=== PATIENT | female | born 1970 | race African-American/Black ===

== ENCOUNTER 2016-09-26 12:13 | Outpatient (CLI) | payer BC, OTHER ==
[~2016-09-26 12:13] MED LIST: AMLO5TAB2 PO; LEVO100T9 PO; LOSA50TA21 PO
[2016-09-26 12:58] LABS: ALBUMIN 3.8 g/dL (3.4-5.0); BILIRUBIN,TOTAL 0.9 mg/dL (0.2-1.0); CALCIUM, SERUM 8.9 mg/dL (8.5-10.1); CREATININE 0.7 mg/dL (0.6-1.3); POTASSIUM 4.2 mmol/L (3.5-5.1); TOTAL PROTEIN, SERUM 7.4 g/dL (6.4-8.2)
[2016-09-26 13:06] LABS: THYROID STIMULATING HORMONE 2.085 uIU/mL (0.358-3.74)
== END 2016-09-26 23:59 | disposition home or self-care (01) ==
LOC: LAB 12:13
DX: E11.9 Type 2 diabetes mellitus without complications (principal); E78.5 Hyperlipidemia, unspecified; E03.9 Hypothyroidism, unspecified
CPT/HCPCS: 36415; 80053-TC; 80061-TC; 84439-TC; 84443-TC; 84481

== ENCOUNTER 2016-11-29 07:18 | Outpatient (CLI) | payer BC, OTHER ==
[2016-11-29 08:16] LABS: BILIRUBIN,TOTAL 0.9 mg/dL (0.2-1.0); CREATININE 1.1 mg/dL (0.6-1.3); POTASSIUM 4.5 mmol/L (3.5-5.1); TOTAL PROTEIN, SERUM 7.6 g/dL (6.4-8.2)
== END 2016-11-29 23:59 | disposition home or self-care (01) ==
LOC: LAB 07:18
DX: E11.9 Type 2 diabetes mellitus without complications (principal)
CPT/HCPCS: 36415; 80053-TC

== ENCOUNTER 2017-05-03 07:56 | Outpatient (CLI) | payer BC, OTHER ==
[2017-05-03 09:13] LABS: THYROID STIMULATING HORMONE 1.513 uIU/mL (0.358-3.74)
[2017-05-03 09:24] LABS: POTASSIUM 4.2 mmol/L (3.5-5.1)
[2017-05-03 09:25] LABS: BILIRUBIN,TOTAL 0.9 mg/dL (0.2-1.0); CALCIUM, SERUM 8.4 mg/dL (8.5-10.1); CREATININE 0.8 mg/dL (0.6-1.3)
[2017-05-03 09:26] LABS: ALBUMIN 3.6 g/dL (3.4-5.0); TOTAL PROTEIN, SERUM 7.2 g/dL (6.4-8.2)
== END 2017-05-03 23:59 | disposition home or self-care (01) ==
LOC: LAB 07:56
DX: E11.9 Type 2 diabetes mellitus without complications (principal); E78.5 Hyperlipidemia, unspecified; E05.90 Thyrotoxicosis, unspecified without thyrotoxic crisis or storm
CPT/HCPCS: 36415; 80053-TC; 80061-TC; 84439-TC; 84443-TC; 84481

== ENCOUNTER 2017-07-29 11:18 | Outpatient (CLI) | payer BC ==
[2017-07-29 12:46] LABS: ALBUMIN 3.8 g/dL (3.4-5.0); BILIRUBIN,TOTAL 1.2 mg/dL (0.2-1.0); CALCIUM, SERUM 9.2 mg/dL (8.5-10.1); CREATININE 0.9 mg/dL (0.6-1.3); POTASSIUM 3.9 mmol/L (3.5-5.1); TOTAL PROTEIN, SERUM 7.7 g/dL (6.4-8.2)
== END 2017-07-29 23:59 | disposition home or self-care (01) ==
LOC: LAB 11:18
DX: E11.9 Type 2 diabetes mellitus without complications (principal); I10 Essential (primary) hypertension
CPT/HCPCS: 36415; 80053-TC

== ENCOUNTER 2017-11-07 09:07 | Outpatient (CLI) | payer BC ==
[2017-11-07 10:13] LABS: ALBUMIN 3.3 g/dL (3.4-5.0); BILIRUBIN,TOTAL 0.7 mg/dL (0.2-1.0); CALCIUM, SERUM 8.6 mg/dL (8.5-10.1); CREATININE 0.9 mg/dL (0.6-1.3); POTASSIUM 4.2 mmol/L (3.5-5.1)
== END 2017-11-07 23:59 | disposition home or self-care (01) ==
LOC: LAB 09:07
DX: E11.9 Type 2 diabetes mellitus without complications (principal); E78.5 Hyperlipidemia, unspecified
CPT/HCPCS: 36415; 80053-TC; 80061-TC

== ENCOUNTER 2017-12-18 07:58 | Outpatient (CLI) | payer BC ==
[~2017-12-18 07:58] MED LIST changes: -AMLO5TAB2 PO; +AMLO5TAB7 PO
[2017-12-18 08:51] LABS: ALBUMIN 3.7 g/dL (3.4-5.0); CALCIUM, SERUM 8.7 mg/dL (8.5-10.1); CREATININE 0.8 mg/dL (0.6-1.3); POTASSIUM 4.2 mmol/L (3.5-5.1); TOTAL PROTEIN, SERUM 7.3 g/dL (6.4-8.2)
[2017-12-18 08:57] LABS: THYROID STIMULATING HORMONE 20.99 uIU/mL (0.358-3.74)
== END 2017-12-18 23:59 | disposition home or self-care (01) ==
LOC: LAB 07:58
DX: I10 Essential (primary) hypertension (principal); E11.9 Type 2 diabetes mellitus without complications; E03.9 Hypothyroidism, unspecified
CPT/HCPCS: 36415; 80053-TC; 80061-TC; 84439-TC; 84443-TC; 84481

== ENCOUNTER 2018-01-16 07:08 | Outpatient (CLI) | payer BC ==
[2018-01-16 09:52] LABS: THYROID STIMULATING HORMONE 4.133 uIU/mL (0.358-3.74)
[2018-01-16 09:58] LABS: ALBUMIN 3.6 g/dL (3.4-5.0); BILIRUBIN,TOTAL 0.6 mg/dL (0.2-1.0); CREATININE 0.7 mg/dL (0.6-1.3); TOTAL PROTEIN, SERUM 7.2 g/dL (6.4-8.2)
== END 2018-01-16 23:59 | disposition home or self-care (01) ==
LOC: LAB 07:08
DX: E11.9 Type 2 diabetes mellitus without complications (principal); E03.9 Hypothyroidism, unspecified
CPT/HCPCS: 36415; 80053-TC; 84439-TC; 84443-TC

== ENCOUNTER 2018-04-14 12:18 | Outpatient (CLI) | payer BC ==
[~2018-04-14 12:18] MED LIST changes: +AMLO5TAB2 PO; -AMLO5TAB7 PO
[2018-04-14 14:50] LABS: ALBUMIN 3.7 g/dL (3.4-5.0); BILIRUBIN,TOTAL 1.2 mg/dL (0.2-1.0); CALCIUM, SERUM 9.1 mg/dL (8.5-10.1); CREATININE 0.6 mg/dL (0.6-1.3); POTASSIUM 3.7 mmol/L (3.5-5.1); TOTAL PROTEIN, SERUM 7.2 g/dL (6.4-8.2)
[2018-04-14 18:24] LABS: FREE T4 (FREE THYROXINE) 1.44 ng/dL (0.76-1.46); THYROID STIMULATING HORMONE 0.756 uIU/mL (0.358-3.74)
== END 2018-04-14 23:59 | disposition home or self-care (01) ==
LOC: LAB 12:18
DX: E11.9 Type 2 diabetes mellitus without complications (principal); E78.5 Hyperlipidemia, unspecified
CPT/HCPCS: 36415; 80053-TC; 84439-TC; 84443-TC; 84481

== ENCOUNTER 2018-06-13 10:17 | Outpatient (CLI) | payer BC, OTHER ==
[~2018-06-13 10:17] MED LIST changes: -AMLO5TAB2 PO; +AMLO5TAB7 PO
[2018-06-13 12:03] LABS: ALBUMIN 3.7 g/dL (3.4-5.0); BILIRUBIN,TOTAL 0.8 mg/dL (0.2-1.0); CALCIUM, SERUM 9.5 mg/dL (8.5-10.1); CREATININE 0.8 mg/dL (0.6-1.3); POTASSIUM 4.1 mmol/L (3.5-5.1); TOTAL PROTEIN, SERUM 7.4 g/dL (6.4-8.2)
== END 2018-06-13 23:59 | disposition home or self-care (01) ==
LOC: LAB 10:17
DX: E11.9 Type 2 diabetes mellitus without complications (principal); E03.9 Hypothyroidism, unspecified; I10 Essential (primary) hypertension; E78.5 Hyperlipidemia, unspecified
CPT/HCPCS: 36415; 80053-TC; 80061-TC

== ENCOUNTER 2018-11-21 07:09 | Outpatient (CLI) | payer BC ==
[~2018-11-21 07:09] MED LIST changes: -AMLO5TAB7 PO; +AMLO5TAB9 PO; -LOSA50TA21 PO; +LOSA50TA39 PO
[2018-11-21 09:32] LABS: BASOPHILS % (AUTO) 0.6 % (0.0-2.0); EOSINOPHILS % (AUTO) 1.9 % (0.0-6.0); HEMATOCRIT 45 % (33-45); LYMPHOCYTES # (AUTO) 2.7 /CMM (0.8-4.8); LYMPHOCYTES % (AUTO) 34.8 % (20.0-44.0); MEAN CORPUSCULAR HGB CONC 34 g/dl (31.0-36.0); MEAN CORPUSCULAR VOLUME 85 fL (82-100); MONOCYTES # (AUTO) 0.4 /CMM (0.1-1.30); MONOCYTES % (AUTO) 5.8 % (2.0-12.0); NEUTROPHILS # (AUTO) 4.4 /CMM (1.8-8.9); NEUTROPHILS % (AUTO) 56.9 % (43.0-81.0); PLATELET COUNT (AUTO) 220 /CMM (150-450); WHITE BLOOD COUNT (AUTO) 7.7 K/uL (4.3-11.0)
[2018-11-21 09:45] LABS: ALBUMIN 3.8 g/dL (3.4-5.0); BILIRUBIN,TOTAL 0.8 mg/dL (0.2-1.0); CALCIUM, SERUM 8.9 mg/dL (8.5-10.1); CREATININE 0.8 mg/dL (0.6-1.3); POTASSIUM 4.3 mmol/L (3.5-5.1); TOTAL PROTEIN, SERUM 7.3 g/dL (6.4-8.2)
[2018-11-21 09:53] LABS: THYROID STIMULATING HORMONE 0.184 uIU/mL (0.358-3.74)
[2018-11-21 11:50] LABS: APPEARANCE,URINE CLEAR (CLEAR); BILIRUBIN,URINE NEGATIVE (NEGATIVE); BLOOD, URINE NEGATIVE Ery/uL (NEGATIVE); COLOR,URINE YELLOW (YELLOW); KETONES,URINE NEGATIVE (NEGATIVE); LEUKOCYTE ESTERASE ,URINE NEGATIVE (NEGATIVE); NITRITE, URINE NEGATIVE (NEGATIVE); PH,URINE 5.5 (5.0-8.0); PROTEIN,URINE NEGATIVE (NEGATIVE); UGLUCOSE 3+ mg/dL (NEGATIVE); UROBILINOGEN,URINE 0.2 EU/dL (0.2)
[2018-11-21 11:54] LABS: BACTERIA,URINE None seen /HPF (None Seen); CLINITEST,URINE 1%; RBC,URINE NONE SEEN /HPF (0-2); SQUAMOUS EPITHELIAL CELL,UR None Seen /HPF (None Seen); WBC,URINE NONE SEEN /HPF (0-3)
[2018-11-21 13:24] LABS: OCCULT BLOOD STOOL NEGATIVE (NEGATIVE)
[2018-11-22 08:08] LABS: T3, FREE 3.4 pg/mL (2.0-4.4)
== END 2018-11-21 23:59 | disposition home or self-care (01) ==
LOC: LAB 07:09
DX: E11.9 Type 2 diabetes mellitus without complications (principal); I10 Essential (primary) hypertension; E03.9 Hypothyroidism, unspecified; R53.83 Other fatigue; R53.81 Other malaise; E78.00 Pure hypercholesterolemia, unspecified
CPT/HCPCS: 36415; 80053-TC; 80061-TC; 81000-TC; 82272-TC; 82306; 84439-TC; 84443-TC; 84481; 85025-TC

== ENCOUNTER 2019-03-04 11:17 | Inpatient (IN) | payer BC ==
[~2019-03-04] VITALS: Ht 157.5 cm; Wt 84.8 kg
--- NOTE | 2019-03-04 11:40 | NUR ---
CAME IN FOR L SIDE GROIN AREA PAIN X 2 WEEKS. TO ER BED 9, HOOKED TO MONITOR, CHANGED TO GOWN, PROVIDED W WARM BLANKET, AWAITING MD RODRIGUEZ
--- NOTE | 2019-03-04 12:26 | NUR ---
ALIE BROWN AT BEDSIDE
[2019-03-04] MEDS ORDERED: IV NS 0.9% 1,000 ML BAG IV ONE (12:30)
[2019-03-04 12:42] LABS: BASOPHILS # (AUTO) 0.1 /CMM (0.0-0.2); BASOPHILS % (AUTO) 0.5 % (0.0-2.0); EOSINOPHILS % (AUTO) 1.3 % (0.0-6.0); HEMATOCRIT 43 % (33-45); HEMOGLOBIN 14.6 g/dL (11.5-14.8); LYMPHOCYTES # (AUTO) 2.5 /CMM (0.8-4.8); LYMPHOCYTES % (AUTO) 24.8 % (20.0-44.0); MEAN CORPUSCULAR HGB CONC 34 g/dl (31.0-36.0); MEAN CORPUSCULAR VOLUME 84 fL (82-100); MONOCYTES # (AUTO) 0.7 /CMM (0.1-1.30); NEUTROPHILS # (AUTO) 6.7 /CMM (1.8-8.9); NEUTROPHILS % (AUTO) 66.4 % (43.0-81.0); PLATELET COUNT (AUTO) 216 /CMM (150-450); RED BLOOD CELL COUNT(AUTO) 5.08 MIL/uL (4.0-5.2); WHITE BLOOD COUNT (AUTO) 10.1 K/uL (4.3-11.0)
--- NOTE | 2019-03-04 12:45 | NUR ---
US TECH AT BEDSIDE
[2019-03-04 12:53] LABS: ALBUMIN 3.2 g/dL (3.4-5.0); BILIRUBIN,DIRECT 0.1 mg/dL (0.0-0.2); BILIRUBIN,TOTAL 0.9 mg/dL (0.2-1.0); CALCIUM, SERUM 8.8 mg/dL (8.5-10.1); CREATININE 0.7 mg/dL (0.6-1.3); POTASSIUM 4.1 mmol/L (3.5-5.1); TOTAL PROTEIN, SERUM 7.1 g/dL (6.4-8.2)
[2019-03-04] MEDS ORDERED: CEFTRIAXONE 1GM BAG (ER ONLY) 50 ML IV ONE (13:59)
[2019-03-04] MEDS ORDERED: CEFTRIAXONE 1GM BAG (ER ONLY) 1 GM/50 ML PIGGYBACK IV ONE (14:00)
[2019-03-04] MEDS ORDERED: ACETAMINOPHEN ES 500 MG TABLET ONE (14:34)
[2019-03-04] MEDS ORDERED: ACETAMINOPHEN 325 MG TABLET PO ONE (15:00)
[2019-03-04] MEDS ORDERED: IOHEXOL-300 100 ML VIAL IV ONE (16:46)
[2019-03-04] MEDS ORDERED: IV NS 0.9% 250 ML IV ONE (16:47)
[2019-03-04] MEDS ORDERED: CT SWABBABLE VALVE TRANS SET 1 EA INFUS.SET MC ONE (16:47)
--- NOTE | 2019-03-04 16:54 | NUR ---
RAC 20G INFILTRATED, IV removed. Catheter intact and site benign. Pressure and 4x4 applied to site. No bleeding noted. STARTED IVP AT LAC 18G
--- NOTE | 2019-03-04 16:59 | NUR ---
WHEELED OUT VIA GURNEY FOR CT PELVIS W CONTRAST
--- NOTE | 2019-03-04 17:19 | NUR ---
PT INSTRUCTED BY SUNDEEP FIERRO OF NOT TAKING METFORMIN FOR 48HRS. PT VERBALIZED UNDERSTANDING. PT SIGNED INSTRUCTIONS FOR DIABETIC PATIENTS TAKING METFORMIN (GLUCOPHAGE) WHO HAVE RECEIVED IV CONTRAST.
[2019-03-04] MEDS ORDERED: VANCOMYCIN 1 GM in IV D5W 250 ML IV ONE (19:00)
--- NOTE | 2019-03-04 19:10 | NUR ---
REPORT GIVEN TO RAMON STODDARD FOR TERRY
--- NOTE | 2019-03-04 19:12 | NUR ---
PT RECEIVED FROM RICHI DOMINGUEZ FOR TERRY.
[2019-03-04] MEDS ORDERED: VANCOMYCIN 1 GM VIAL ONE (19:15)
--- NOTE | 2019-03-04 19:34 | NUR ---
BED 913-2
[2019-03-04] MEDS ORDERED: ATOR40TA PO (19:55)
[2019-03-04] MEDS ORDERED: AMLO10TA7 PO (19:55)
[2019-03-04] MEDS ORDERED: LEVO112T7 PO (19:55)
[2019-03-04] MEDS ORDERED: GLIM2TAB2 PO (19:55)
[2019-03-04] MEDS ORDERED: Triamterene PO (19:55)
[2019-03-04] MEDS ORDERED: METF-440 PO (19:55)
--- NOTE | 2019-03-04 19:57 | NUR ---
REPORT GIVEN TO RICHI WILSON FOR TERRY. PT GOING TO 326-2 MS
--- NOTE | 2019-03-04 20:25 | NUR ---
MS RN NOTE PT ARRIVED TO UNIT VIA GURNEY FROM ER. ACCOMPANIED BY 3 CHILDREN. PT IN STABLE CONDITION A&O X4, ABLE TO MAKE NEEDS KNOWN. CURRENTLY IN BED SPEAKING WITH CHILDREN. NO SIGNS OF SOB OR DISTRESS, NO C/O PAIN. BODY ASSESSED WITH PHOTOS TAKEN. PT REFUSED TO FOR PRIVATE AREA TO BE SEEN. STATED THERE IS NOTHING THERE. ALL BELONGINGS ACCOUNTED AND SIGNED FOR. IV IN L AC IN PLACE. ALL NEEDS ATTENDED TO. BED LOW, LOCKED, UPPER RAILS UP, AND CALL LIGHT WITHIN REACH. JAMES PAGED AND NOTIFIED OF PT ARRIVAL. AWAITING ORDERS ON PCS. WILL CONT. TO MONITOR.
--- NOTE | 2019-03-04 20:31 | NUR ---
PT TRANSPORTED BY EMT AT BEDSIDE. PT INSTABLE CONDITION UPON TRANSFER. NAD.
[2019-03-04] MEDS ORDERED: CEFTRIAXONE 1 G in IV D5W 50 ML IV SCH (22:30)
[2019-03-04] MEDS ORDERED: ONDANSETRON HCL/PF 4 MG/2 ML VIAL IVP PRN (22:30)
[2019-03-04] MEDS ORDERED: LOSARTAN POTASSIUM 50 MG TABLET PO PRN (22:30)
[2019-03-04] MEDS ORDERED: Z GUARD REMEDY 2 OZ OINT TP PRN (22:30)
[2019-03-04] MEDS ORDERED: MAG HYDROX/AL HYDROX/SIMETH 30 ML UDC PO PRN (22:30)
[2019-03-04] MEDS ORDERED: DEXTROSE 50%-WATER 50 ML DISP.SYRIN IV PRN (22:30)
[2019-03-04] MEDS: MORPHINE SULFATE INJ 2 MG/ML DISP.SYRIN IV PRN (22:36)
--- NOTE | 2019-03-04 22:36 | NUR ---
MS RN NOTE PRN MORPHINE 4 MG GIVEN IV FOR L THIGH PAIN 04/11. WILL CONT. TO MONITOR.
[2019-03-05] MEDS: HYDROCODONE/APAP 5/325MG 1 EACH TABLET PO PRN ×2 (03:46→17:40)
--- NOTE | 2019-03-05 03:46 | NUR ---
MS RN NOTE PRN NORCO 5-325 MG GIVEN PO FOR L THIGH PAIN 03/11. WILL CONT. TO MONITOR
[2019-03-05] MEDS: INSULIN REGULAR, HUMAN 100 UNIT/ML 3 ML VIAL SQ PRN ×4 (06:17→21:44)
--- NOTE | 2019-03-05 06:27 | NUR ---
MS RN NOTE PT IN STABLE CONDITION A&O X4, ABLE TO MAKE NEEDS KNOWN. CURRENTLY IN BED, WITH EYES CLOSED. NO SIGNS OF SOB OR DISTRESS, NO C/O PAIN. IV IN L AC IN PLACE H/L. ALL NEEDS ATTENDED TO. BED LOW, LOCKED, UPPER RAILS UP, AND CALL LIGHT WITHIN REACH. WILL CONT. TO MONITOR AND ENDORSE TO NEXT SHIFT FOR TERRY.
[2019-03-05 06:36] LABS: BASOPHILS % (AUTO) 0.3 % (0.0-2.0); EOSINOPHILS % (AUTO) 0.9 % (0.0-6.0); HEMATOCRIT 39 % (33-45); HEMOGLOBIN 13.4 g/dL (11.5-14.8); LYMPHOCYTES # (AUTO) 2.5 /CMM (0.8-4.8); LYMPHOCYTES % (AUTO) 23.9 % (20.0-44.0); MEAN CORPUSCULAR HGB CONC 34 g/dl (31.0-36.0); MEAN CORPUSCULAR VOLUME 83 fL (82-100); MONOCYTES # (AUTO) 0.7 /CMM (0.1-1.30); MONOCYTES % (AUTO) 6.4 % (2.0-12.0); NEUTROPHILS # (AUTO) 7.1 /CMM (1.8-8.9); NEUTROPHILS % (AUTO) 68.5 % (43.0-81.0); PLATELET COUNT (AUTO) 211 /CMM (150-450); RED BLOOD CELL COUNT(AUTO) 4.72 MIL/uL (4.0-5.2); WHITE BLOOD COUNT (AUTO) 10.3 K/uL (4.3-11.0)
[2019-03-05 06:45] LABS: THYROID STIMULATING HORMONE 0.978 uIU/mL (0.358-3.74)
[2019-03-05 06:52] LABS: CALCIUM, SERUM 8.3 mg/dL (8.5-10.1); CREATININE 0.7 mg/dL (0.6-1.3); MAGNESIUM 1.8 mg/dL (1.8-2.4); PHOSPHORUS 3.8 mg/dL (2.5-4.9); POTASSIUM 3.8 mmol/L (3.5-5.1)
--- NOTE | 2019-03-05 07:10 | NUR ---
RN OPENING NOTES RECEIVED PATIENT IN BED RESTING. A/OX4. NOT IN ANY FORM OF DISTRESS, NO SOB. PAIN ON LEFT GROIN 12/10, REFUSED PAIN MEDS, "PAIN TOLERABLE AT THIS TIME" . IV ACCESS INTACT AND PATENT. KEPT PATIENT SAFE AND COMFORTABLE. BED IN LOW/LOCKED POSITION, SIDERAILS UPX2, CALL LIGHT IN REACH. WILL CONTINUE TO MONIOTR ACCORDINGLY Addendum: 03/05/19 at 0805 by CHARLA RIVERA ACCU CHECK NON ADMIN. ACCU CHECK DONE PRIOR TO SHIFT BY RICHI WILSON
[2019-03-05] MEDS: BLOOD SUGAR DIAGNOSTIC 1 EACH STRIP IN SCH ×4 (07:30→21:38)
[2019-03-05] MEDS: LEVOTHYROXINE SODIUM 112 MCG TABLET PO SCH (07:49)
[2019-03-05 08:00] VITALS: BP 104/59
[2019-03-05] MEDS: AMLODIPINE BESYLATE 10 MG TABLET PO SCH (08:03)
[2019-03-05] MEDS ORDERED: FEE PK DOSING 1 MIN EA MC ONE (08:28)
[2019-03-05] MEDS: VANCOMYCIN 1 GM in IV D5W 250 ML IV SCH ×2 (08:59→20:25)
[2019-03-05] MEDS ORDERED: TRIAMTERENE 25 MG PO SCH (09:00)
[2019-03-05] MEDS: ACETAMINOPHEN 325 MG TABLET PO PRN (10:50)
[2019-03-05] MEDS: CEFTRIAXONE 1 G in IV D5W 50 ML IV SCH (14:54)
[2019-03-05 15:30] VITALS: BP 121/78
[2019-03-05] MEDS: ATORVASTATIN 40 MG TABLET PO SCH (17:39)
--- NOTE | 2019-03-05 19:14 | NUR ---
RN CLOSING NOTES PATIENT IN STABLE CONDITION. ALL NEEDS ATTENDED AND PROVIDED. ALL DUE MEDICATIONS GIVEN ORDERED. ASSISTED WITH ADLS. KEPT PATIENT SAFE AND COMFORTABLE. BED INLOW/LOCKED POSIITON. SIDERAILS UP X2, CALL LIGHT IN REACH. ENDORSED TO NIGHT RN FOR TERRY.
--- NOTE | 2019-03-05 19:15 | NUR ---
MS RN OPENING NOTES Received patient in bed, family at bedside. Alert, oriented x 4. Breathing even and unlabored. Not in any distress, on room air. No complaints at this time. Call light within easy reach, bed in low, locked position. Will continue to monitor accordingly
[2019-03-05 20:00] VITALS: BP 112/76
--- NOTE | 2019-03-05 21:47 | NUR ---
RN NOTES BSL- 337mg/dL. Insulin 8units given per sliding scale. Snacks provided
[2019-03-05] MEDS ORDERED: INSULIN GLARGINE, 100 UNIT/ML CARTRIDGE SQ SCH (22:00)
--- NOTE | 2019-03-06 06:22 | NUR ---
RN NOTES Clarified with patient regarding code status. Patient stated she wishes to be DNR. business services sales agent consult requested
[2019-03-06] MEDS: BLOOD SUGAR DIAGNOSTIC 1 EACH STRIP IN SCH ×4 (06:36→21:32)
[2019-03-06] MEDS: INSULIN REGULAR, HUMAN 100 UNIT/ML 3 ML VIAL SQ PRN ×4 (06:37→21:35)
--- NOTE | 2019-03-06 06:41 | NUR ---
MS RN CLOSING NOTES Patient sitting up in bed, alert, oriented x 4. Breathing even and unlabored. Not in any distress, on room air. No complaints at this time. BSL 218MG/DL. Insulin 4u given per sliding scale. All needs attended. Call light within easy reach, bed in low, locked position. Will continue to monitor accordingly
[2019-03-06] MEDS: MAGNESIUM HYDROXIDE 30 ML UDC PO PRN (06:47)
--- NOTE | 2019-03-06 06:48 | NUR ---
RN NOTES Patient requested medication for constipation. Milk of magnesia given as ordered
[2019-03-06] MEDS: LEVOTHYROXINE SODIUM 112 MCG TABLET PO SCH (07:35)
--- NOTE | 2019-03-06 07:37 | NUR ---
MS RN OPENING NOTES RECEIVED PT LAYING IN BED WITH HOB ELEVATED. PT IS AWAKE, ALERTX4. RESPIRATIONS ARE EVEN AND UNLABORED, NOT IN ANY ACUTE DISTRESS NOTED. PT C/O PAIN 2/10 TO LEFT UPPER THIGH BUT STATES SHE DOES NOT NEED ANYTHING FOR PAIN, WILL MONITOR FOR PAIN. DENIES ANY SOB, N/V. IV SITE TO RIGHT HAND G22, INTACT, NO INFILTRATION NOTED. DRESSING KEPT CLEAN AND DRY. SAFETY MEASURES ARE IN PLACE. INSTRUCTED PT TO USE CALL LIGHT WHEN ASSISTANCE IS NEEDED, CALL LIGHT IS LEFT WITHIN REACH WILL MONITOR THROUGHOUT SHIFT FOR CONTINUITY OF CARE.
[2019-03-06 08:00] VITALS: BP 139/80
[2019-03-06] MEDS: AMLODIPINE BESYLATE 10 MG TABLET PO SCH (08:11)
--- NOTE | 2019-03-06 08:12 | NUR ---
MS RN NOTES-- BP 139/80. PT STATED SHE DOES NOT TAKEN ANY BP MEDICATIONS IF SBP <140. EXPLAINED THE RISKS AND BENEFITS OF AMLODIPINE. PT STATED SHE UNDERSTANDS. WILL MONITOR FOR HYPO/HYPERTENSION.
[2019-03-06 08:29] LABS: CALCIUM, SERUM 8.4 mg/dL (8.5-10.1); CREATININE 0.7 mg/dL (0.6-1.3); POTASSIUM 3.7 mmol/L (3.5-5.1)
[2019-03-06] MEDS ORDERED: VANCOMYCIN 1 GM in IV NS 0.9% 250 ML IV SCH (09:00)
--- NOTE | 2019-03-06 11:57 | NUR ---
MS RN NOTES-- BLOOD SUGAR 261. 6 UNITS OF HUMULIN GIVEN. NO S/SX OF HYPO/HYPERGLYCEMIA. WILL CONTINUE TO MONITOR.
--- NOTE | 2019-03-06 11:59 | NUR ---
MS RN NOTES-- PT WAS SEEN AND EXAMINED BY DR. FENTON.
[2019-03-06] MEDS: CEFTRIAXONE 1 G in IV D5W 50 ML IV SCH (13:32)
--- NOTE | 2019-03-06 15:30 | NUR ---
MS RN NOTES-- WARM COMPRESS GIVEN TO APPLY TO LEFT GROIN.
[2019-03-06 16:00] VITALS: BP 124/70
[2019-03-06] MEDS: LACTOBACILLUS RHAMNOSUS GG 1 EACH CAP.SPRINK PO SCH (16:46)
[2019-03-06] MEDS: ACETAMINOPHEN 325 MG TABLET PO PRN (16:46)
[2019-03-06] MEDS: ATORVASTATIN 40 MG TABLET PO SCH (17:17)
--- NOTE | 2019-03-06 17:17 | NUR ---
MS RN NOTES-- BLOOD SUGAR 138. 2 UNITS OF INSULIN GIVEN. NO S/SX OF HYPO/HYPOGLYCEMIA. PT REFUSED LIPITOR. PER PT, "MY CHOLESTEROL IS GOOD, I DONT NEED IT." EXPLAINED THE RISKS AND BENEFITS OF LIPITOR. PT STATED, "NO ITS OKAY, I DONT NEED IT." WILL CONTINUE TO MONITOR.
--- NOTE | 2019-03-06 18:35 | NUR ---
MS RN CLOSING NOTES NEEDS MET AND RENDERED. PT REMAINS A/O X4, AFEBRILE. RESPIRATIONS ARE EVEN AND UNLABORED, NOT IN ANY ACUTE DISTRESS NOTED. PT DENIES ANY PAIN AT THIS TIME, NO C/O SOB, N/V. IV SITE TO RIGHT HAND INTACT, NO INFILTRATION NOTED. DRESSING KEPT CLEAN AND DRY. SAFETY MEASURES ARE IN PLACE. WILL ENDORSE TO NEXT SHIFT FOR CONTINUITY OF CARE.
[2019-03-06 20:00] VITALS: BP 138/77
--- NOTE | 2019-03-06 20:11 | NUR ---
MS/RN ON INITIAL SHIFT ROUND AT 1930, PATIENT WAS IN BED AOX4, COMFORTABLE, NO C/O PAIN. NO DISTRESS NOTED, CALL LIGHT IN REACH. WILL MONITOR.
[2019-03-06] MEDS: VANCOMYCIN 1.25 GM in IV NS 0.9% 500 ML IV SCH (21:20)
[2019-03-06] MEDS: INSULIN GLARGINE, 100 UNIT/ML CARTRIDGE SQ SCH (21:34)
[2019-03-06] MEDS: HYDROCODONE/APAP 5/325MG 1 EACH TABLET PO PRN (21:47)
--- NOTE | 2019-03-06 23:41 | NUR ---
MS/RN PATIENT IS SLEEPING APPEAR COMFORTABLE, NO SIGNS OF DISTRESS NOTED, CALL LIGHT IN REACH. WILL CONTINUE TO MONITOR.
--- NOTE | 2019-03-07 06:12 | NUR ---
MS/RN PATIENT IS AWAKE, SLEPT GOOD THE WHOLE SHIFT, NO DISTRESS NOTED, CALL LIGHT IN REACH. ALL NEEDS ATTENDED AT THIS TIME, WILL CONTINUE TO MONITOR.
[2019-03-07] MEDS: INSULIN REGULAR, HUMAN 100 UNIT/ML 3 ML VIAL SQ PRN ×4 (06:29→21:57)
[2019-03-07] MEDS: BLOOD SUGAR DIAGNOSTIC 1 EACH STRIP IN SCH ×4 (06:31→22:02)
[2019-03-07 06:57] LABS: BASOPHILS # (AUTO) 0.1 /CMM (0.0-0.2); BASOPHILS % (AUTO) 1.2 % (0.0-2.0); EOSINOPHILS % (AUTO) 2.5 % (0.0-6.0); HEMATOCRIT 39 % (33-45); HEMOGLOBIN 13.3 g/dL (11.5-14.8); LYMPHOCYTES % (AUTO) 33.3 % (20.0-44.0); MEAN CORPUSCULAR HGB CONC 34 g/dl (31.0-36.0); MEAN CORPUSCULAR VOLUME 84 fL (82-100); MONOCYTES # (AUTO) 0.7 /CMM (0.1-1.30); MONOCYTES % (AUTO) 7.1 % (2.0-12.0); NEUTROPHILS # (AUTO) 5.1 /CMM (1.8-8.9); NEUTROPHILS % (AUTO) 55.9 % (43.0-81.0); PLATELET COUNT (AUTO) 184 /CMM (150-450); RED BLOOD CELL COUNT(AUTO) 4.63 MIL/uL (4.0-5.2); WHITE BLOOD COUNT (AUTO) 9.1 K/uL (4.3-11.0)
[2019-03-07 07:26] LABS: CALCIUM, SERUM 8.6 mg/dL (8.5-10.1); CREATININE 0.6 mg/dL (0.6-1.3); POTASSIUM 4.1 mmol/L (3.5-5.1)
--- NOTE | 2019-03-07 07:30 | NUR ---
RN MS NOTES PT IN BED, AWAKE, ALERT AND ORIENTED, WITH COMPLAINT OF PAIN 3/10 TO LEFT GROIN, DOES NOT WANT ANY PAIN MED AT THIS TIME, RESPIRATIONS NORMAL, CALL LIGHT WITHIN REACH, NEEDS ATTENDED.
[2019-03-07 08:00] VITALS: BP 151/91
[2019-03-07] MEDS: LEVOTHYROXINE SODIUM 112 MCG TABLET PO SCH (08:24)
[2019-03-07] MEDS: LACTOBACILLUS RHAMNOSUS GG 1 EACH CAP.SPRINK PO SCH ×2 (08:24→17:10)
[2019-03-07] MEDS: VANCOMYCIN 1.25 GM in IV NS 0.9% 500 ML IV SCH ×2 (08:27→20:41)
--- NOTE | 2019-03-07 08:30 | NUR ---
RN MS NOTES PT IN BED, SEEN AND EXAMINED BY DR. STEELE, PLAN OF CARE DISCUSSED WITH PT, VERBALIZED UNDERSTANDING, AM MEDS GIVEN ORDERED.
[2019-03-07] MEDS: AMLODIPINE BESYLATE 10 MG TABLET PO SCH (08:39)
[2019-03-07] MEDS ORDERED: LACTOBACILLUS RHAMNOSUS GG 1 EACH CAP.SPRINK PO SCH (09:00)
--- NOTE | 2019-03-07 12:34 | NUR ---
RN MS NOTES PT AWAKE, WALKING ALONG THE HALLWAY TOLERATED, NO COMPLAINT OF PAIN, RESPIRATIONS NORMAL, TOLERATING CURRENT DIET WELL, NEEDS ATTENDED.
[2019-03-07] MEDS: CEFTRIAXONE 1 G in IV D5W 50 ML IV SCH (13:57)
[2019-03-07 16:00] VITALS: BP 112/84
[2019-03-07] MEDS: ATORVASTATIN 40 MG TABLET PO SCH (17:10)
--- NOTE | 2019-03-07 18:23 | NUR ---
RN MS NOTES PT IN BED, ASLEEP, EASY TO AROUSE, NO COMPLAINT OF PAIN AT THIS TIME, RESPIRATIONS NORMAL, CALL LIGHT WITHIN REACH, DUE MEDS GIVEN ORDERED, BS CHECKED, ALL NEEDS ATTENDED.
--- NOTE | 2019-03-07 19:10 | NUR ---
RN MS OPENING NOTES RECEIVED PATIENT IN BED AWAKE ALERT AND ORIENTED X4, RESPIRATIONS EVEN AND UNLABORED WITH EQUAL RISE AND FALL OF CHEST, LEFT GROIN AREA SKIN IS INTACT , SLIGHTLY RED AND TENDER TO TOUCH HOWEVER AT THIS TIME DOES NOT NEED PAIN MEDICATION , TOLERABLE , MADE AWARE PAIN MEDICATION IS AVAILABLE IF NEEDED, S/B ID WITH RECOMMENDATION TO CONT ABX AND AWAIT SX CONSULT,IV SITE TO LEFT FA #20 G INTACT AND PATENT, NO REDNESS, NO INFILTRATION PRESENT,ORIENTED TO STAFF AND CALL LIGHT AND KETP WITHIN REACH,ALL NEEDS ATTENDED REMAINS COMFORTABLE AT THIS TIME WILL CONTINUE TO MONITOR AND ATTEND TO NEEDS.
[2019-03-07 20:00] VITALS: BP 132/81
[2019-03-07] MEDS: INSULIN GLARGINE, 100 UNIT/ML CARTRIDGE SQ SCH (21:59)
[2019-03-08] MEDS ORDERED: LIDOCAINE 1%-EPI 1:100,000 20 ML VIAL TP ONE
--- NOTE | 2019-03-08 | NUR ---
RN MS CONSENT NOTES SURGICAL CONSULT DONE SEEN BY DR.SAMUEL FRANKS AT BEDSIDE, PER MD RECOMMENDS NEEDLE ASPIRATION , POSSIBLE INCISION AND DRAINAGE OF LEFT THIGH. PATIENT MADE AWARE OF MD RECOMMENDATION TRANSLATED IN [place] AND MADE AWARE OF CONSENTS NEEDED, MD WILL USE LIDOCAINE AND DO PROCEDURE AT BEDSIDE, PATIENT AGREED, CONSENTS OBTAINED ORDERED, ANESTHESIA CONSENT OBTAINED. PROCEDURE EXPLAINED TO PATIENT BY MD.
--- NOTE | 2019-03-08 00:05 | NUR ---
RN MS NOTES LIDOCAINE SCANNED FOR MD USE ORDERED.
[2019-03-08] MEDS: HYDROCODONE/APAP 5/325MG 1 EACH TABLET PO PRN ×3 (00:07→21:42)
--- NOTE | 2019-03-08 00:07 | NUR ---
RN MS NOTES PATIENT OFFERED PAIN MEDICATION PRIOR TO START OF PROCEDURE, OFFERED MORPHINE OR NORCO PER PATIENT REQUEST TO TAKE NORCO AT THIS TIME, PRN NORCO GIVEN PRIOR TO START OF PROCEDURE.
[2019-03-08] MEDS: MORPHINE SULFATE INJ 2 MG/ML DISP.SYRIN IV PRN ×2 (00:28→15:15)
--- NOTE | 2019-03-08 00:28 | NUR ---
RN MS NOTES PATIENT NOTED WITH FACIAL GRIMACING DISCOMFORT/PAIN TO LEFT THIGH DURING BEGINNING OF PROCEDURE , PER MD GIVE IV PAIN MEDICATION,PRN MORPHINE OFFERED, PATIENT AGREED TO HAVE AT THIS TIME , MD MADE AWARE OF NORCO RECENTLY GIVEN, PER MD. GOLDEN GLASS TO GIVE PRN MORPHINE AT THIS TIME,MORPHINE PRN GIVEN ORDERED, WILL CONTINUE TO MONITOR FOR EFFECTIVENESS.
--- NOTE | 2019-03-08 01:30 | NUR ---
RN MS NOTES PAIN REASSESSED , STATES "NO PAIN " PAIN MEDICATION WAS EFFECTIVE.REMAINS COMFORTABLE AT THIS TIME.
[2019-03-08] MEDS: BLOOD SUGAR DIAGNOSTIC 1 EACH STRIP IN SCH ×4 (06:28→21:46)
[2019-03-08] MEDS: INSULIN REGULAR, HUMAN 100 UNIT/ML 3 ML VIAL SQ PRN ×3 (06:29→21:50)
--- NOTE | 2019-03-08 06:38 | NUR ---
RN MS CLOSING NOTES PATIENT IN BED AWAKE ALERT AND ORIENTED X4, RESPIRATIONS EVEN AND UNLABORED WITH EQUAL RISE AND FALL OF CHEST, LEFT GROIN S/P I &D SITE WITH DRESSING INTACT NOTED WITH SLIGHT SEROSANGUINEOUS DRAINAGE,DRESSING REMAINS INTACT, C/O PAIN DISCOMFORT, HOWEVER AT THIS TIME DOES NOT NEED PAIN MEDICATION , TOLERABLE , MADE AWARE PAIN MEDICATION IS AVAILABLE IF NEEDED,IV SITE TO LEFT FA #20 G INTACT AND PATENT, NO REDNESS, NO INFILTRATION PRESENT, CALL LIGHT KEPT WITHIN REACH,ALL NEEDS ATTENDED REMAINS COMFORTABLE AT THIS TIME WILL CONTINUE TO MONITOR AND ATTEND TO NEEDS AND ENDORSE TO NEXT SHIFT.
--- NOTE | 2019-03-08 07:30 | NUR ---
MS/RN NOTE RECEIVED THE PATIENT IN BED. ALERT AND ORIENTED X4. DENIES PAIN. RESPIRATION REGULAR AND UNLABORED. DENIES SOB. THE PATIENT IS IN ROOM AIR. LFA G 20 PATENT AND SALINE LOCKED. LEFT GROIN DRESSING IN PLACE WITH LIGHT RED DRAINAGE NOTED. BED LOW ADN LOCKED. SIDE RAILS UP X2. CALL LIGHT WITHIN REACH. WILL CONTINUE TO MONITOR.
[2019-03-08 08:00] VITALS: BP 123/88
[2019-03-08] MEDS: LEVOTHYROXINE SODIUM 112 MCG TABLET PO SCH (08:23)
[2019-03-08 08:37] VITALS: BP 123/88
[2019-03-08] MEDS: AMLODIPINE BESYLATE 10 MG TABLET PO SCH (09:00)
[2019-03-08] MEDS: VANCOMYCIN 1.25 GM in IV NS 0.9% 500 ML IV SCH (09:28)
[2019-03-08] MEDS: LACTOBACILLUS RHAMNOSUS GG 1 EACH CAP.SPRINK PO SCH ×2 (09:28→17:39)
[2019-03-08 09:32] LABS: CALCIUM, SERUM 8.3 mg/dL (8.5-10.1); CREATININE 0.7 mg/dL (0.6-1.3); POTASSIUM 3.7 mmol/L (3.5-5.1)
[2019-03-08] MEDS: CEFTRIAXONE 1 G in IV D5W 50 ML IV SCH (14:17)
[2019-03-08 16:00] VITALS: BP 111/78
[2019-03-08] MEDS: METFORMIN 500 MG TABLET PO SCH (17:38)
[2019-03-08] MEDS: ATORVASTATIN 40 MG TABLET PO SCH (17:39)
[2019-03-08] MEDS: VANCOMYCIN 1.25 GM in IV D5W 500 ML IV SCH (17:41)
--- NOTE | 2019-03-08 18:48 | NUR ---
MS/RN NOTE THE PATIENT ALERT AND ORIENTED X4. IN ROOM AIR AND SATURATION IS AT 98%. DENIES SOB. RESPIRATION REGULAR AND UNLABORED. DENIES PAIN. THE PATIENT IN NO APPARENT DISTRESS. LEFT GROIN DRESSING CHANGE DONE DURING THE SHIFT. THE DRESSING INTACT WITH NO BLEEDING NOTED. LFA G 20 PATENT AND SALINE LOCKED. BED LOW AND LOCKED. SIDE RAILS UP X2. CALL LIGHT WITHIN REACH. WILL ENDORSE TO INDUSTRIAL ORGANIZATION MANAGER.
--- NOTE | 2019-03-08 19:00 | NUR ---
RN MS OPENING NOTES RECEIVED PATIENT IN BED AWAKE ALERT AND ORIENTED X4, RESPIRATIONS EVEN AND UNLABORED WITH EQUAL RISE AND FALL OF CHEST, LEFT GROIN AREA DRESSING IS INTACT , AT THIS TIME DOES NOT PAIN MEDICATION , IV SITE TO LEFT FA #20 G REMOVED NOTED INFILTRATED ICE APPLIED, IV SITE TO RIGHT FA #20 G INTACT AND PATENT, NO REDNESS, NO INFILTRATION PRESENT,ORIENTED TO STAFF AND CALL LIGHT AND KEPT WITHIN REACH,ALL NEEDS ATTENDED REMAINS COMFORTABLE AT THIS TIME WILL CONTINUE TO MONITOR AND ATTEND TO NEEDS.
[2019-03-08 20:00] VITALS: BP 105/74
--- NOTE | 2019-03-08 21:42 | NUR ---
RN MS NOTES PATIENT STATES PAIN TO LEFT S/P I &D AREA /THIGH ,04/11 ALSO NOTED DRESSING WITH MODERATE SEROSANGUINEOUS DRAINAGE, OFFERED TO CHANGE DRESSING PER PATIENT REQUEST ONLY DRY GAUZE TO BE CHANGED NOT PACKING, "PACKING WAS CHANGED IN AM" ALSO FOR SATURDAY PICTURE , "PICTURE WAS TAKEN AT TIME OF DRESSING CHANGE TODAY" SATURDAY PICTURE IN CHART NORCO PRN GIVEN ORDERED VS WNL. WILL CONTINUE TO MONITOR FOR EFFECTIVENESS.
[2019-03-08] MEDS: INSULIN GLARGINE, 100 UNIT/ML CARTRIDGE SQ SCH (21:47)
[2019-03-08] MEDS: MAGNESIUM HYDROXIDE 30 ML UDC PO PRN (21:52)
--- NOTE | 2019-03-08 21:52 | NUR ---
RN MS NOTES PATIENT STATES HAS NOT HAD A BOWEL MOVEMENT AND REQUESTING FOR MILK OF MAGNESIUM , PRN MILK OF MAGNESIUM GIVEN ORDERED. WILL CONTINUE TO MONITOR FOR EFFECTIVENESS.
--- NOTE | 2019-03-08 22:30 | NUR ---
RN MS NOTES DRY GAUZE DRESSING CHANGED AT THIS TIME, TOLERATED WELL. PAIN MEDICATION EFFECTIVE.
[2019-03-09] MEDS: VANCOMYCIN 1.25 GM in IV D5W 500 ML IV SCH ×3 (01:46→20:31)
[2019-03-09] MEDS: INSULIN REGULAR, HUMAN 100 UNIT/ML 3 ML VIAL SQ PRN ×4 (06:11→22:07)
[2019-03-09] MEDS: BLOOD SUGAR DIAGNOSTIC 1 EACH STRIP IN SCH ×4 (06:11→22:00)
--- NOTE | 2019-03-09 07:15 | NUR ---
MS/RN OPENING NOTE THE PATIENT IS RECEIVED IN BED. AWAKE, ALERT AND ORIENTED X4. IN ROOM AIR AND DENIES SOB. RESPIRATION REGULAR AND UNLABORED. DENIES PAIN. THE PATIENT IS IN NO APPARENT DISTRESS. LEFT GROIN DRESSING INTACT. NO BLEEDING OR DISCHARGE NOTED. RFA G 20 PATENT AND SALINE LOCKED. BED LOW AND LOCKED. SIDE RAILS UP X2. CALL LIGHT WITHIN REACH. WILL CONTINUE TO MONITOR.
--- NOTE | 2019-03-09 07:31 | NUR ---
RN MS CLOSING NOTES PATIENT IN BED AWAKE ALERT AND ORIENTED X4, RESPIRATIONS EVEN AND UNLABORED WITH EQUAL RISE AND FALL OF CHEST, LEFT GROIN AREA DRESSING IS INTACT , AT THIS TIME DOES NOT PAIN MEDICATION , IV SITE TO RIGHT FA #20 G INTACT AND PATENT, NO REDNESS, NO INFILTRATION PRESENT, CALL LIGHT KEPT WITHIN REACH,ALL NEEDS ATTENDED REMAINS COMFORTABLE AT THIS TIME WILL CONTINUE TO MONITOR AND ATTEND TO NEEDS AND ENDORSE TO NEXT SHIFT.
[2019-03-09] MEDS: LEVOTHYROXINE SODIUM 112 MCG TABLET PO SCH (07:46)
[2019-03-09 08:00] VITALS: BP 139/82
[2019-03-09 08:14] LABS: CALCIUM, SERUM 8.4 mg/dL (8.5-10.1); CREATININE 0.7 mg/dL (0.6-1.3)
[2019-03-09] MEDS: METFORMIN 500 MG TABLET PO SCH ×2 (08:19→18:22)
[2019-03-09] MEDS: AMLODIPINE BESYLATE 10 MG TABLET PO SCH (09:00)
[2019-03-09] MEDS: LACTOBACILLUS RHAMNOSUS GG 1 EACH CAP.SPRINK PO SCH ×2 (10:05→18:22)
[2019-03-09] MEDS: HYDROCODONE/APAP 5/325MG 1 EACH TABLET PO PRN (15:30)
[2019-03-09 16:00] VITALS: BP 129/96
[2019-03-09] MEDS: ATORVASTATIN 40 MG TABLET PO SCH (18:22)
--- NOTE | 2019-03-09 18:39 | NUR ---
MS/RN NOTE THE PATIENT ALERT AND ORIENTED X4. IN ROOM AIR AND SATURATION IS AT 98%. DENIES SOB. RESPIRATION REGULAR AND UNLABORED. DENIES PAIN. THE PATIENT IN NO APPARENT DISTRESS. LEFT GROIN DRESSING CHANGE DONE AND THE PATIENT TOLERATED IT WELL. NO S/S INFECTION AT THE SITE NOTED, NO BLEEDING NOTED. RAC G 22 PATENT AND SALINE LOCKED. BED LOW AND LOCKED. SIDE RAILS UP X2. CALL LIGHT WITHIN REACH. WILL ENDORSE TO MATCHER LEATHER PARTS.
--- NOTE | 2019-03-09 19:15 | NUR ---
RN medsurg opening notes Received Pt from morning nurse. Pt is alert and oriented x4. Pt's family at the bed side. Pt is laying in bed comfortably. Respiration is normal. No SOB. No nausea or vomiting. Pt denies any pain or discomfort at this time. IV sites at RAC #22 is intact, patent and SL. Safety precautions is maintained. Instructed to call. Bed at low position, brakes on, side rails upX2 and call light is within reach. Will continue to monitor to assist all needs.
[2019-03-09 20:00] VITALS: BP 132/81
--- NOTE | 2019-03-09 22:00 | NUR ---
RN medsurg notes Pt is resting in bed comfortably. Awaken easily. No S/S of distress noted. Will continue to monitor.
[2019-03-09] MEDS: INSULIN GLARGINE, 100 UNIT/ML CARTRIDGE SQ SCH (22:05)
[2019-03-10] MEDS: BLOOD SUGAR DIAGNOSTIC 1 EACH STRIP IN SCH ×4 (06:31→20:54)
--- NOTE | 2019-03-10 06:44 | NUR ---
RN medsurg notes Pt is alert and oriented X4. Pt is laying in bed comfortably. No SOB. NO S/S of distress noted. Pt denies any pain or discomfort at this time. No nausea or vomiting. VS is stable. Afebrile. IV sites at BANNER is intact, patent, clean and SL. Routine meds were given. All needs met. Dressing at L groin is clean, dry and intact. Safety precautions is maintained. Bed at low position and call light is within reach. Will endorse to morning nurse for TERRY.
[2019-03-10] MEDS: LEVOTHYROXINE SODIUM 112 MCG TABLET PO SCH (07:51)
[2019-03-10 08:00] VITALS: BP 138/98
[2019-03-10 08:01] LABS: CALCIUM, SERUM 8.7 mg/dL (8.5-10.1); CREATININE 0.8 mg/dL (0.6-1.3); POTASSIUM 3.9 mmol/L (3.5-5.1)
[2019-03-10] MEDS: METFORMIN 500 MG TABLET PO SCH ×2 (09:31→17:00)
[2019-03-10] MEDS: LACTOBACILLUS RHAMNOSUS GG 1 EACH CAP.SPRINK PO SCH ×2 (09:31→18:02)
[2019-03-10] MEDS: VANCOMYCIN 1.25 GM in IV D5W 500 ML IV SCH (09:31)
[2019-03-10] MEDS: AMLODIPINE BESYLATE 10 MG TABLET PO SCH (09:32)
[2019-03-10] MEDS: ACETAMINOPHEN 325 MG TABLET PO PRN (11:28)
--- NOTE | 2019-03-10 11:33 | NUR ---
medicated for headache with tylenol 650 mg po.additionally iv leaking,removed and restarted with #22 angio.
[2019-03-10] MEDS: INSULIN REGULAR, HUMAN 100 UNIT/ML 3 ML VIAL SQ PRN (12:50)
[2019-03-10] MEDS: HYDROCODONE/APAP 5/325MG 1 EACH TABLET PO PRN (12:51)
--- NOTE | 2019-03-10 13:00 | NUR ---
medicated with norco in preparation of dressing chg.
--- NOTE | 2019-03-10 13:20 | NUR ---
tolerated dressing change ,but with good deal of pain,does not want pain injection.had small amt. serous drainage from wd.still with swelling in thigh.
[2019-03-10 16:00] VITALS: BP 107/66
[2019-03-10] MEDS: ATORVASTATIN 40 MG TABLET PO SCH (18:03)
--- NOTE | 2019-03-10 18:30 | NUR ---
dc instructions given to pt. aware of wound care follow up at clinic and home health info. has rxs per cece garcía rehabilitation medicine physician.verbalized understanding of all instructions.will endorse eve. cortés to do diabetic instruction on insulin injection.all papers signed including belonging sheet.
--- NOTE | 2019-03-10 18:40 | NUR ---
refused discharge photo of lt. groin wound as does not want tape on dressing to be removed.
--- NOTE | 2019-03-10 19:30 | NUR ---
RN medsurg opening notes Received Pt from morning nurse. Pt is alert and oriented x4. Respiration is normal. No SOB. No S/S of distress noted. Pt states " I'm happy to go home." IV sites is intact, patent and clean. D/C instruction has been given by RICHI Gross. Informed and educated Pt how to use Insulin Lantus, prevent from hypoglycemia, skin care, eat healthy food, F/U with MD. Pt and Pt's daughter verbalized understanding and returned demo.
[2019-03-10 20:27] VITALS: BP 142/93
[2019-03-10] MEDS: INSULIN GLARGINE, 100 UNIT/ML CARTRIDGE SQ SCH (20:57)
--- NOTE | 2019-03-10 20:57 | NUR ---
RN medsur notes Pt's blood sugar was 177. Pt's preferred to have Lantus 22 units. Educated and showed Pt how to injected the insulin and changed the sites all the time. Instructed Pt to check blood glucose regularly or as instructed by the MD. Educated Pt to have snacks, [place] juice all the time to prevent from hypoglycemia. Informed Pt to clean with alcohol swab the sites and Lantus insulin. Pt and Pt's daughter verbalized understanding and returned demo. PT showed how to pulled insulin from Lantus and get the corrected amount, Pt also showed how injected Lantus insulin in right sites, and don't rub the sites.
--- NOTE | 2019-03-10 21:26 | NUR ---
RN peter D/C notes Pt is alert and oriented X4. Respiration is normal. No Sob. No nausea or vomiting. Pt denies any pain or discomfort. VS is stable. Afebrile. Discharge instruction given. Instructed Pt when to call primary MD for appoitment and infectious disease. Educated and informed about Lantus insulin. Pt and Pt's daughter verbalize understanding about Insulin regimen and medications, wound care, and D/C instructions. Pt's daughter Piedad at the bed side and will take her home. Pt has been ambulating in the room without SOB, no nausea or vomiting, no pain. Pt escorted to hospital's lobby and all belongings sent with Pt.
== END 2019-03-10 21:30 | disposition home or self-care (01) | DRG 815 ==
LOC: ER 11:17 → MED 19:53
PROVIDERS: ADMIT Nurse Practitioner Acute Care; ATTEND Nurse Practitioner Acute Care
PROC: 0J9M3ZZ Drainage of Left Upper Leg Subcutaneous Tissue and Fascia, Percutaneous Approach (ICD-10-PCS; principal; 2019-03-08)
DX: L04.1 Acute lymphadenitis of trunk (principal); L02.214 Cutaneous abscess of groin; L03.314 Cellulitis of groin; E11.65 Type 2 diabetes mellitus with hyperglycemia; K57.30 Diverticulosis of large intestine without perforation or abscess without bleeding; E03.9 Hypothyroidism, unspecified; Z90.710 Acquired absence of both cervix and uterus; Z83.3 Family history of diabetes mellitus; Z80.0 Family history of malignant neoplasm of digestive organs; Z79.890 Hormone replacement therapy; Z79.84 Long term (current) use of oral hypoglycemic drugs; E66.9 Obesity, unspecified; K46.9 Unspecified abdominal hernia without obstruction or gangrene; E78.5 Hyperlipidemia, unspecified; I10 Essential (primary) hypertension; Z68.34 Body mass index [BMI] 34.0-34.9, adult; L04.9 Acute lymphadenitis, unspecified; B95.61 Methicillin susceptible Staphylococcus aureus infection as the cause of diseases classified elsewhere
CPT/HCPCS: 36415; 72193-TC; 76882; 80048-TC; 80061-TC; 80076-TC; 80202-TC; 82962-TC; 83735-TC; 84100-TC; 84443-TC; 84703-TC; 85025-TC; 87040-TC; 87070-TC; 87081-TC; 93971-TC; A6407; G0378; J0696; J1815; J2270; J3370; J3490; J7030; J7040; J7050; J7060; Q9967

== ENCOUNTER 2019-03-16 14:40 | Outpatient (CLI) | payer BC ==
[~2019-03-16 14:40] MED LIST changes: +AMLO10TA7 PO; -AMLO5TAB9 PO; +ATOR40TA PO; +GLIM2TAB2 PO; -LEVO100T9 PO; +LEVO112T7 PO; +METF-440 PO; +Triamterene PO
== END 2019-03-16 23:59 | disposition home health service (06) ==
LOC: WOU 14:40
PROVIDERS: ATTEND Surgery
DX: T81.89XA Other complications of procedures, not elsewhere classified, initial encounter (principal); E66.01 Morbid (severe) obesity due to excess calories; Z68.36 Body mass index [BMI] 36.0-36.9, adult; E11.9 Type 2 diabetes mellitus without complications; I10 Essential (primary) hypertension; E78.5 Hyperlipidemia, unspecified; Z79.84 Long term (current) use of oral hypoglycemic drugs
CPT/HCPCS: 11042; A6402; A6407

== ENCOUNTER 2019-03-23 14:30 | Outpatient (CLI) | payer BC | END 2019-03-23 23:59 | disposition home health service (06) | LOC: WOU 14:30 | PROVIDERS: ATTEND Surgery | DX: T81.89XA Other complications of procedures, not elsewhere classified, initial encounter (principal); E66.01 Morbid (severe) obesity due to excess calories; Z68.36 Body mass index [BMI] 36.0-36.9, adult; E11.9 Type 2 diabetes mellitus without complications; I10 Essential (primary) hypertension; E78.5 Hyperlipidemia, unspecified; Z79.84 Long term (current) use of oral hypoglycemic drugs | CPT/HCPCS: 11042 ==

== ENCOUNTER 2019-03-30 14:45 | Outpatient (CLI) | payer BC | END 2019-03-30 23:59 | disposition home or self-care (01) | LOC: WOU 14:45 | PROVIDERS: ATTEND Surgery | DX: T81.89XA Other complications of procedures, not elsewhere classified, initial encounter (principal); E66.01 Morbid (severe) obesity due to excess calories; Z68.36 Body mass index [BMI] 36.0-36.9, adult; E11.9 Type 2 diabetes mellitus without complications; I10 Essential (primary) hypertension; E78.5 Hyperlipidemia, unspecified; Z79.84 Long term (current) use of oral hypoglycemic drugs | CPT/HCPCS: 11042 ==

== ENCOUNTER 2019-04-06 15:05 | Outpatient (CLI) | payer BC | END 2019-04-06 23:59 | disposition home or self-care (01) | LOC: WOU 15:05 | PROVIDERS: ATTEND Surgery | DX: T81.89XA Other complications of procedures, not elsewhere classified, initial encounter (principal); E66.01 Morbid (severe) obesity due to excess calories; Z68.36 Body mass index [BMI] 36.0-36.9, adult; E11.9 Type 2 diabetes mellitus without complications; I10 Essential (primary) hypertension; E78.5 Hyperlipidemia, unspecified; Z79.84 Long term (current) use of oral hypoglycemic drugs | CPT/HCPCS: 11042 ==